=== PATIENT | male | born 1950 | race Caucasian/White ===

== ENCOUNTER → 2016-06-15 | Outpatient (CLI) | payer OTHER, MEDICARE | LOC: MW.CHFP 09:15 | PROVIDERS: ATTEND Emergency Medicine | DX: I10 Essential (primary) hypertension (principal); E03.9 Hypothyroidism, unspecified; E11.9 Type 2 diabetes mellitus without complications | CPT/HCPCS: 36415; 80053; 80061; 82044; 83036; 84443 ==

== ENCOUNTER 2019-12-02 10:41 | Day surgery (SDC) | payer MEDICARE, OTHER ==
[2019-12-02] MEDS ORDERED: Lidocaine 2% 5 ML SDV INJECT ONE (12:00)
[2019-12-02] MEDS ORDERED: Iopamidol 200-M 10 ML vial ITHECAL ONE (12:00)
[2019-12-02] MEDS ORDERED: Ropivacaine 0.5% 5 MG/ML 30 ML SDV INJECT ONE (12:00)
[2019-12-02] MEDS ORDERED: Betamethasone Acetate/Betamethasone Sod Phosphate 30 MG/5 ML MDV EPIDUR ONE (12:00)
--- NOTE | 2019-12-02 15:06 | OR ---
SURGEON: Elvi Enriquez D.O. DATE OF PROCEDURE: 12/02/2019 PRIMARY SURGEON: Elvi Enriquez DO ASSISTANTS: OR staff present: 1. Simran Dunn RN. 2. Ana Cuenca RN. 3. Perico Saldivar RT. WOUND CLASS: I. PREOPERATIVE DIAGNOSES: 1. L2-3 lumbar radiculopathy. 2. L4-5 lumbar radiculopathy. 3. L2-3 and L4-5 posterior disk protrusions. 4. Chronic low back pain. 5. Lumbar degenerative disc disease Postoperative diagnosis: same PROCEDURES PERFORMED: 1. Left transforaminal epidural steroid injection at L2. 2. Left transforaminal epidural steroid injection at L4. 3. Fluoroscopic guidance for needle placement. 4. Local with oral Valium for sedation. SCREENING QUESTIONS: The patient answered "no" to all of the following questions: 1. Are you allergic to iodine, Betadine or latex? 2. Do you have a bleeding disorder? 3. Do you have any joint replacements, heart valve replacements, or a pacemaker? 4. Are you allergic to anti-inflammatories or blood thinners? 5. Do you have any current local or systemic infections? DESCRIPTION OF PROCEDURE: The patient had the procedure thoroughly explained including risks, benefits and alternatives. Consent was signed in my clinic indicating understanding and willingness to proceed. The patient presented to [facility] where the patient was escorted to the dressing room to disrobe and change into a hospital gown. Preoperative vital signs were taken and stable. The patient reported that Valium was taken prior to the procedure. The patient was brought to the procedure room and placed in the prone position on the table. A pillow was placed under the abdomen in order to flatten the lumbar lordosis. The back was prepped with ChloraPrep and sterilely draped. All personnel in the operating room were dressed in appropriate attire including surgical scrubs, head and shoe covers. This was to ensure sterility while in the treatment room. During the time fluoroscopy was in use, all personnel in the operating room wore lead escalera with thyroid collars. Sterile technique was used during the procedure. The fluoroscope was placed for the left L2 transforaminal epidural steroid injection. There was no sign of infection at the skin site for needle insertion. The skin was anesthetized with 2% lidocaine with a 27 gauge 1-1/2 inch needle. Then, a 22 gauge 3-1/2 inch spinal needle, advanced to the left L2 foramen. Under direct fluoroscopic guidance needle position was verified in three views; AP, oblique and lateral, with 0.2 cubic centimeters increments of Isovue-200 dye. No intravascular flow pattern was observed under live fluoroscopy.Then 6 milligrams of Celestone and local was slowly injected after negative aspiration of heme, cerebrospinal fluid and no paresthesias were noted. The needle was cleared prior to removal from the skin. Her seizure was then repeated for the left L4 transforaminal epidural steroid injection as above No adverse reactions were noted. The patient was brought to the recovery room awake and in good condition by my staff. The patient was monitored and discharge instructions were given after a brief stay in the recovery area. Both oral and written discharge and follow up instructions were given. The patient will follow up in the clinic in 3-4 weeks post procedure to evaluate the efficacy. The patient verbalized understanding including understanding of those signs and symptoms that would require emergency care and knows how to contact the office if there are any problems or questions in the meantime. PREOPERATIVE PAIN: 9/10. POSTOPERATIVE PAIN: 2/10. FOLLOWUP: In the Pain Clinic in 3 weeks. DAVID / CANDIDO /[id number]
== END 2019-12-02 13:00 | disposition home or self-care (01) ==
LOC: MW.SDS 10:41
PROVIDERS: ATTEND Anesthesiology
DX: G89.29 Other chronic pain (principal); M51.16 Intervertebral disc disorders with radiculopathy, lumbar region; M47.26 Other spondylosis with radiculopathy, lumbar region; N40.0 Benign prostatic hyperplasia without lower urinary tract symptoms; E11.69 Type 2 diabetes mellitus with other specified complication; E78.5 Hyperlipidemia, unspecified; I10 Essential (primary) hypertension; E03.9 Hypothyroidism, unspecified; G47.33 Obstructive sleep apnea (adult) (pediatric); E11.42 Type 2 diabetes mellitus with diabetic polyneuropathy; G25.81 Restless legs syndrome; M79.18 Myalgia, other site; M48.061 Spinal stenosis, lumbar region without neurogenic claudication; Z88.2 Allergy status to sulfonamides; Z91.013 Allergy to seafood; Z79.82 Long term (current) use of aspirin; Z79.899 Other long term (current) drug therapy; Z79.84 Long term (current) use of oral hypoglycemic drugs
CPT/HCPCS: 64483; 64484; J0702; J2001; J2795; Q9966

== ENCOUNTER 2024-11-28 06:54 | Day surgery (SDC) | payer MEDICARE, OTHER ==
[2024-11-28] MEDS: Lactated Ringers 1,000 ML IV SCH (07:20)
[2024-11-28] MEDS ORDERED: propofoL 500 MG/50 ML 50 ML ONE (07:24)
[2024-11-28] MEDS ORDERED: dexmedeTOMIDine HCl 200 MCG/2 ML SDV ONE (07:33)
[2024-11-28] MEDS ORDERED: Lactated Ringers 1,000 ML IV SCH (08:45)
[2024-11-28 11:54] VITALS: BP 108/66; PULSE 62
== END 2024-11-28 09:24 | disposition home or self-care (01) ==
LOC: MW.SDS 06:54
PROVIDERS: ATTEND Surgery
DX: Z12.11 Encounter for screening for malignant neoplasm of colon (principal); K29.50 Unspecified chronic gastritis without bleeding; K31.89 Other diseases of stomach and duodenum; R11.2 Nausea with vomiting, unspecified; K57.30 Diverticulosis of large intestine without perforation or abscess without bleeding; K22.89 Other specified disease of esophagus; E11.9 Type 2 diabetes mellitus without complications; I10 Essential (primary) hypertension; I25.10 Atherosclerotic heart disease of native coronary artery without angina pectoris; E78.00 Pure hypercholesterolemia, unspecified; E03.9 Hypothyroidism, unspecified; E66.9 Obesity, unspecified; Z88.2 Allergy status to sulfonamides; Z91.09 Other allergy status, other than to drugs and biological substances; Z79.82 Long term (current) use of aspirin; Z79.84 Long term (current) use of oral hypoglycemic drugs; Z68.32 Body mass index [BMI] 32.0-32.9, adult; Z91.013 Allergy to seafood; Z79.899 Other long term (current) drug therapy; Z79.890 Hormone replacement therapy
CPT/HCPCS: 43239; G0121; J2704; J7120; 00813; 99100